=== PATIENT | female | born 1965 ===

== ENCOUNTER 2016-10-03 07:37 | Day surgery (SDC) | payer BC ==
[2016-10-03 08:07] VITALS: BMI 26.4
[2016-10-03 08:29] VITALS: O2SAT 100
[2016-10-03] MEDS ORDERED: Propofol 10 mg/ml Inj (20 ML) ONE ×2 (08:58)
[2016-10-03 09:33] VITALS: TEMP 98.2
[2016-10-03 09:59] VITALS: BP 130/69; PULSE 53; RESP 18
== END 2016-10-03 09:57 | disposition home or self-care (01) ==
LOC: C.ENDO 07:37
PROVIDERS: ATTEND Internal Medicine Gastroenterology
DX: K64.8 Other hemorrhoids (principal); D12.7 Benign neoplasm of rectosigmoid junction
CPT/HCPCS: 45388; 84703; 88305; J2704